=== PATIENT | male | born 2005 | race African-American/Black ===

== ENCOUNTER 2023-03-16 09:30 | Emergency (ER) | payer OTHER, SELFPAY ==
[2023-03-16 10:52] LABS: SARS-CoV-2 NAA Rapid Test DETECTED (NotDetected)
== END 2023-03-16 10:53 | disposition home or self-care (01) ==
LOC: CSHERS 09:30
DX: U07.1 COVID-19 (principal); J06.9 Acute upper respiratory infection, unspecified
CPT/HCPCS: 99283